=== PATIENT | male | born 1965 | race Caucasian/White ===

== ENCOUNTER 2017-02-27 21:37 | Observation (INO) | payer MEDICAID ==
[2017-02-27 21:37] VITALS: BMI 32.7
[2017-02-27 21:43] VITALS: TEMP 97.8
--- NOTE | 2017-02-27 23:14 | ED PDOC ---
HPI: Psych/Substance Abuse Time Seen by Provider: 02/27/17 22:02 Chief Complaint (Nursing): Alcohol Ingestion Chief Complaint (Provider): Alcohol Ingestion ED Caveat: Intoxicated History/Exam Limitations: intoxication Onset/Duration Of Symptoms: Unknown Modifying Factor(s): Alcohol Additional Complaint(s): Patient is a 51 yo male who is well known to this ED who presents intoxicated via [facility] found lying on the street. Patient unable to provide any complaints at this time due to intoxication. Past Medical History Reviewed: Historical Data, Nursing Documentation, Vital Signs Vital Signs: Last Vital Signs Temp 97.8 F 02/27/17 21:39 Pulse 86 02/27/17 21:39 Resp 18 02/27/17 21:39 BP 160/102 H 02/27/17 21:39 Pulse Ox 100 02/27/17 21:39 - Family History Family History: States: Unknown Family Hx - Immunization History Hx Tetanus Toxoid Vaccination: No Hx Influenza Vaccination: No Hx Pneumococcal Vaccination: No - Home Medications Home Medications: Ambulatory Orders Medication Instructions Recorded Amoxicillin/Clavulanate [Augmentin 1 tab PO BID #0 tab 03/09/16 875 MG-125 MG] Azithromycin [Zithromax] 250 mg PO DAILY #0 tab 03/09/16 Folic Acid 1 mg PO DAILY #0 tab 03/09/16 Furosemide [Lasix] 40 mg PO DAILY #0 tab 03/09/16 LORazepam [Ativan] 0.5 mg PO TID #0 tab 03/09/16 Spironolactone [Aldactone] 100 mg PO DAILY #0 tab 03/09/16 Thiamine [Vitamin B1 Tab] 100 mg PO DAILY #0 tab 03/09/16 Cephalexin [Keflex] 500 mg PO BID #14 capsule 07/10/16 - Allergies Allergies/Adverse Reactions: Allergies Allergy/AdvReac Type Severity Reaction Status Date / Time No Known Allergies Allergy Verified 04/19/16 14:37 Review of Systems ROS Statement: Except As Marked, All Systems Reviewed And Found Negative Constitutional: Negative for: Fever Respiratory: Negative for: Cough Gastrointestinal: Negative for: Vomiting Psych: Positive for: Other (Intoxicated) Physical Exam - Reviewed Vital Signs Reviewed: Yes - Physical Exam Appears: Negative for: No Acute Distress (Patient arousable to painful stimuli) Skin: Positive for: Warm Neck: Positive for: Normal Gastrointestinal/Abdominal: Positive for: Soft Extremity: Positive for: Other (small abrasion just distal to left olecranon) Neurologic/Psych: Positive for: Other (arousable to painful stimuli) - ECG O2 Sat by Pulse Oximetry: 100 Pulse Ox Interpretation: Normal Medical Decision Making Medical Decision Making: Time: 11:37 pm Impression: Alcohol intoxication Plan: POC Glucose Fingerstick Alcohol level Case endorsed to Dr. Jones pending reevaluation. Disposition - Clinical Impression Clinical Impression: Alcohol abuse with intoxication - Patient ED Disposition Is Patient to be Admitted: Transfer of Care - Disposition Disposition: Transfer of Care Disposition Time: 23:47 Condition: STABLE Forms: [facility] (Japanese)
--- NOTE | 2017-02-28 02:53 | ED PDOC ---
- ECG O2 Sat by Pulse Oximetry: 100 (RA) Pulse Ox Interpretation: Normal Medical Decision Making Medical Decision Making: Receiving sign out: Patient signed out to me by YESSY Dickson at 00:00 pending clinical sobriety. Scribe Attestation: Documented by Marixa Amor acting as a scribe for South Jones MD. Provider Attestation: All medical record entries made by the Scribe were at my direction and personally dictated by me. I have reviewed the chart and agree that the record accurately reflects my personal performance of the history, physical exam, medical decision making, and the department course for this patient. I have also personally directed, reviewed, and agree with the discharge instructions and disposition. Disposition - Clinical Impression Clinical Impression: Alcohol abuse with intoxication - POA Present On Arrival: None - Disposition Disposition: Routine/Home Disposition Time: 23:30 (02/27/17) Condition: STABLE ED OBSERVATION Date of observation admission: 02/28/17 Time of observation admission: 23:30 - Observation admission statement Patient is being placed in observation because:: Patient acutely intoxicated - Goals of Observation Goals of observation are:: Pending clinical sobriety - Progress Note Progress Note: 02/28/17 01:00 Patient resting in room, no acute distress. 02/28/17 02:33 Patient resting in room, no acute distress. 02/28/17 04:03 Resting in room, no acute distress. 02/28/17 05:20 resting in room, no acute distress. 02/28/17 05:50 Patient awake, alert and oriented with steady gait, stable for discharge home.
[2017-02-28 04:40] VITALS: BP 156/86; PULSE 78; RESP 16
[2017-02-28 05:20] VITALS: O2SAT 100
== END 2017-02-28 05:45 | disposition home or self-care (01) ==
LOC: H.ER 21:37 → H.EROBSV 23:24
PROVIDERS: ADMIT Emergency Medicine; ATTEND Emergency Medicine
DX: F10.129 Alcohol abuse with intoxication, unspecified (principal); Z79.899 Other long term (current) drug therapy; Y90.8 Blood alcohol level of 240 mg/100 ml or more
CPT/HCPCS: 36415; 80320; 82948; 99283; G0378

== ENCOUNTER 2017-05-22 01:28 | Emergency (ER) | payer MEDICAID ==
[2017-05-22 01:28] VITALS: BMI 32.7
--- NOTE | 2017-05-22 02:32 | ED PDOC ---
HPI: Psych/Substance Abuse Time Seen by Provider: 05/22/17 01:57 Chief Complaint (Nursing): Alcohol Ingestion Chief Complaint (Provider): Alcohol Ingestion ED Caveat: Intoxicated History Per: EMS History/Exam Limitations: intoxication Onset/Duration Of Symptoms: Mins (prior to arrival) Current Symptoms Are (Timing): Still Present Additional Complaint(s): 51 year old male, well-known to emergency department with previous medical history of alcoholism, who presents to the ED via EMS for an evaluation of public intoxication prior to arrival. Unable to obtain further medical history due to patient's current state of intoxication. PMD: none provided Past Medical History Reviewed: Nursing Documentation, Vital Signs, Unable To Obtain (intoxication) Vital Signs: Last Vital Signs Temp 98.0 F 05/22/17 01:48 Pulse 110 H 05/22/17 01:48 Resp 20 05/22/17 01:48 BP 166/105 H 05/22/17 01:48 Pulse Ox 100 05/22/17 01:48 - Family History Family History: States: Unknown Family Hx - Social History Alcohol: > 2 Drinks/Day - Immunization History Hx Tetanus Toxoid Vaccination: No Hx Influenza Vaccination: No Hx Pneumococcal Vaccination: No - Home Medications Home Medications: Ambulatory Orders Medication Instructions Recorded Amoxicillin/Clavulanate [Augmentin 1 tab PO BID #0 tab 03/09/16 875 MG-125 MG] Azithromycin [Zithromax] 250 mg PO DAILY #0 tab 03/09/16 Folic Acid 1 mg PO DAILY #0 tab 03/09/16 Furosemide [Lasix] 40 mg PO DAILY #0 tab 03/09/16 LORazepam [Ativan] 0.5 mg PO TID #0 tab 03/09/16 Spironolactone [Aldactone] 100 mg PO DAILY #0 tab 03/09/16 Thiamine [Vitamin B1 Tab] 100 mg PO DAILY #0 tab 03/09/16 Cephalexin [Keflex] 500 mg PO BID #14 capsule 07/10/16 - Allergies Allergies/Adverse Reactions: Allergies Allergy/AdvReac Type Severity Reaction Status Date / Time No Known Allergies Allergy Verified 05/22/17 01:48 Review of Systems Review Of Systems: ROS cannot be obtained secondary to pt's inabilty to answer questions. (intoxication) Physical Exam - Reviewed Nursing Documentation Reviewed: Yes Vital Signs Reviewed: Yes - Physical Exam Appears: Positive for: No Acute Distress Head Exam: Positive for: ATRAUMATIC, NORMAL INSPECTION, NORMOCEPHALIC Eye Exam: Positive for: Scleral icterus (chronic). Negative for: Normal appearance ENT: Positive for: Normal ENT Inspection Neck: Positive for: Normal Cardiovascular/Chest: Positive for: Regular Rate, Rhythm, Chest Non Tender Respiratory: Positive for: Normal Breath Sounds, Decreased Breath Sounds. Negative for: Respiratory Distress Gastrointestinal/Abdominal: Positive for: Soft, Distended (chronic). Negative for: Normal Exam Extremity: Positive for: Normal ROM, Pedal Edema (and chronic erythema) Neurologic/Psych: Positive for: Other (arousable to painful stimuli). Negative for: Alert, Oriented - Laboratory Results Result Diagrams: 05/22/17 03:24 05/22/17 03:24 - ECG O2 Sat by Pulse Oximetry: 100 (RA) Pulse Ox Interpretation: Normal Medical Decision Making Medical Decision Making: Initial Impression: Alcohol intoxication Initial Plan: * Clinical sobriety ____ Time: 0700 --Patient signed out to Dr. Pennington. Pending clinical sobriety. Scribe Attestation: Documented by Belle Martin, acting as a scribe for Prabhakar Sandoval MD. Provider Scribe Attestation: All medical record entries made by the Scribe were at my direction and personally dictated by me. I have reviewed the chart and agree that the record accurately reflects my personal performance of the history, physical exam, medical decision making, and the department course for this patient. I have also personally directed, reviewed, and agree with the discharge instructions and disposition. Disposition - Clinical Impression Clinical Impression: Alcohol abuse - Disposition Disposition Time: 07:00 Condition: STABLE Forms: [facility] (Slovak) Patient Signed Over To: Piter Hoover Handoff Comments: pending sobriety
[2017-05-22 03:33] LABS: BASO % 0.3 % (0.0-2.0); EOS # 0.2 K/uL (0.0-0.7); EOS % 3.9 % (0.0-4.0); HEMATOCRIT 35.1 % (35.0-51.0); LYMPH # 1.4 K/uL (1.0-4.3); LYMPH % 26.2 % (20.0-40.0); MEAN CELL VOLUME 90.9 fl (80.0-94.0); MEAN CORPUSCULAR HEMOGLOBIN 30.2 pg (27.0-31.0); MEAN CORPUSCULAR HGB CONC 33.2 g/dL (33.0-37.0); MEAN PLATELET VOLUME 7.7 fl (7.2-11.7); MONO # 0.4 K/uL (0.0-0.8); MONO % 6.9 % (0.0-10.0); NEUT # 3.4 K/uL (1.8-7.0); NEUT % 62.7 % (50.0-75.0); NRBC % 0.1 % (0.0-0.0); WHITE BLOOD COUNT 5.4 K/uL (4.8-10.8)
[2017-05-22 04:02] LABS: BLOOD UREA NITROGEN 8 mg/dl (9-20); CARBON DIOXIDE 25 mmol/L (22-30); CHLORIDE 107 mmol/L (98-107); GFR AFRICAN-AMERICAN > 60; GLUCOSE,RANDOM 121 mg/dL (75-110); POTASSIUM 3.6 MMOL/L (3.6-5.0); SODIUM 148 mmol/l (132-148)
[2017-05-22 04:03] LABS: CALCIUM 9.3 mg/dL (8.4-10.2)
[2017-05-22 04:09] LABS: ALCOHOL SERUM 328 mg/dl (0-10)
--- NOTE | 2017-05-22 07:06 | ED PDOC ---
- Laboratory Results Result Diagrams: 05/22/17 03:24 05/22/17 03:24 - ECG O2 Sat by Pulse Oximetry: 100 (RA) Pulse Ox Interpretation: Normal Medical Decision Making Medical Decision Makin:00 Patient signed over from Prabhakar Sandoval MD to me pending clinical sobriety. :32 Patient is now alert and oriented x3, tolerating PO intake, ambulatory with steady gait. Scribe Attestation: Documented by Pam Jarrell, acting as a scribe for Piter Hoover MD. Provider Scribe Attestation: All medical record entries made by the Scribe were at my direction and personally dictated by me. I have reviewed the chart and agree that the record accurately reflects my personal performance of the history, physical exam, medical decision making, and the department course for this patient. I have also personally directed, reviewed, and agree with the discharge instructions and disposition. Disposition - Clinical Impression Clinical Impression: Alcohol abuse - Disposition Disposition: Routine/Home Disposition Time: :32 Condition: STABLE Forms: [employer] (Maori)
[2017-05-22 07:28] VITALS: TEMP 97.7
[2017-05-22 11:46] VITALS: BP 132/78; PULSE 80; RESP 16
[2017-05-22 11:48] VITALS: O2SAT 100
== END 2017-05-22 11:59 | disposition home or self-care (01) ==
LOC: H.ER 01:28
DX: F10.129 Alcohol abuse with intoxication, unspecified (principal)

== ENCOUNTER 2017-08-20 20:32 | Emergency (ER) | payer MEDICAID ==
[2017-08-20 20:33] VITALS: BMI 32.7
[2017-08-20 20:42] VITALS: TEMP 97.6; O2SAT 97
--- NOTE | 2017-08-20 22:55 | ED PDOC ---
HPI: Psych/Substance Abuse Time Seen by Provider: 08/20/17 20:46 Chief Complaint (Nursing): Alcohol Ingestion Chief Complaint (Provider): Alcohol Ingestion ED Caveat: Intoxicated History Per: EMS History/Exam Limitations: intoxication Onset/Duration Of Symptoms: Days (x1) Current Symptoms Are (Timing): Still Present Additional Complaint(s): 51 y/o male brought to ED by EMS due to intoxication. Patient is well known to provider in ER. PMD: Provider TBD Past Medical History Reviewed: Historical Data, Nursing Documentation, Vital Signs, Unable To Obtain Vital Signs: Last Vital Signs Temp 97.6 F 08/20/17 20:37 Pulse 84 08/20/17 20:37 Resp 18 08/20/17 20:37 BP 111/66 08/20/17 20:37 Pulse Ox 97 08/20/17 20:37 - Family History Family History: States: Unknown Family Hx - Immunization History Hx Tetanus Toxoid Vaccination: No Hx Influenza Vaccination: No Hx Pneumococcal Vaccination: No - Home Medications Home Medications: Ambulatory Orders Medication Instructions Recorded Amoxicillin/Clavulanate [Augmentin 1 tab PO BID #0 tab 03/09/16 875 MG-125 MG] Azithromycin [Zithromax] 250 mg PO DAILY #0 tab 03/09/16 Folic Acid 1 mg PO DAILY #0 tab 03/09/16 Furosemide [Lasix] 40 mg PO DAILY #0 tab 03/09/16 LORazepam [Ativan] 0.5 mg PO TID #0 tab 03/09/16 Spironolactone [Aldactone] 100 mg PO DAILY #0 tab 03/09/16 Thiamine [Vitamin B1 Tab] 100 mg PO DAILY #0 tab 03/09/16 Cephalexin [Keflex] 500 mg PO BID #14 capsule 07/10/16 - Allergies Allergies/Adverse Reactions: Allergies Allergy/AdvReac Type Severity Reaction Status Date / Time No Known Allergies Allergy Verified 05/22/17 01:48 Review of Systems Review Of Systems: ROS cannot be obtained secondary to pt's inabilty to answer questions. Physical Exam - Reviewed Nursing Documentation Reviewed: Yes Vital Signs Reviewed: Yes - Physical Exam Appears: Positive for: Non-toxic, No Acute Distress (poor hygiene) Head Exam: Positive for: ATRAUMATIC, NORMAL INSPECTION, NORMOCEPHALIC Skin: Positive for: Normal Color, Warm, Dry. Negative for: Rash Eye Exam: Positive for: EOMI, Normal appearance, PERRL Neck: Positive for: Normal, Painless ROM, Supple Cardiovascular/Chest: Positive for: Regular Rate, Rhythm. Negative for: Murmur Respiratory: Positive for: Normal Breath Sounds. Negative for: Respiratory Distress Gastrointestinal/Abdominal: Positive for: Normal Exam, Bowel Sounds, Soft. Negative for: Tenderness Back: Positive for: Normal Inspection. Negative for: L CVA Tenderness, R CVA Tenderness, Vertebral Tenderness Extremity: Positive for: Normal ROM. Negative for: Pedal Edema, Deformity Neurologic/Psych: Positive for: Alert (somnolent but arousable ), Oriented. Negative for: Motor/Sensory Deficits - ECG O2 Sat by Pulse Oximetry: 97 (RA) Pulse Ox Interpretation: Normal Medical Decision Making Medical Decision Making: Time: 21:05 Initial Impression: 51 y/o male with alcohol intoxication Initial Plan: --Accucheck --Alcohol serum --Glucose, POC --Reevaluation 0530 Upon re-evaluation patient is awake, alert, and oriented x3. Patient walks with a steady gait and is stable for discharge home. Scribe Attestation: Documented by Jassi Anton and Sarah Vasquez, acting as a scribe for South Jones MD. Provider Scribe Attestation: All medical record entries made by the Scribe were at my direction and personally dictated by me. I have reviewed the chart and agree that the record accurately reflects my personal performance of the history, physical exam, medical decision making, and the department course for this patient. I have also personally directed, reviewed, and agree with the discharge instructions and disposition. Disposition - Clinical Impression Clinical Impression: Alcohol intoxication - Disposition Disposition: Routine/Home Disposition Time: 05:00 Condition: STABLE Instructions: Alcohol Use - When Is Drinking a Problem? Forms: [facility] (Welsh)
[2017-08-20 23:32] VITALS: BP 136/70; PULSE 100; RESP 20
== END 2017-08-21 06:00 | disposition home or self-care (01) ==
LOC: H.ER 20:32
DX: F10.129 Alcohol abuse with intoxication, unspecified (principal)

== ENCOUNTER 2017-12-07 18:56 | Emergency (ER) | payer SELFPAY ==
[2017-12-07 18:57] VITALS: BMI 32.7
[2017-12-07 19:10] VITALS: RESP 18
--- NOTE | 2017-12-07 21:06 | ED PDOC ---
HPI: Psych/Substance Abuse Time Seen by Provider: 12/07/17 19:17 Chief Complaint (Nursing): Alcohol Ingestion Chief Complaint (Provider): Alcohol Ingestion ED Caveat: Intoxicated History Per: EMS History/Exam Limitations: intoxication Onset/Duration Of Symptoms: Mins Current Symptoms Are (Timing): Still Present Suicide/Self Injury Attempted (Context): None Modifying Factor(s): Alcohol Additional Complaint(s): 51 y/o male brought in by EMS after being found sleeping on the street. Patient is unable to have a steady gait. Patient admits to drinking alcohol. Patient offers not other complaints at this time. Patient is well known to provider. PMD: None Provided Past Medical History Reviewed: Historical Data, Nursing Documentation, Vital Signs Vital Signs: Last Vital Signs Temp 98.7 F 12/07/17 19:08 Pulse 92 H 12/07/17 19:08 Resp 18 12/07/17 19:08 BP 117/72 12/07/17 19:08 Pulse Ox 100 12/07/17 19:08 - Medical History PMH: No Chronic Diseases - Family History Family History: States: Unknown Family Hx - Social History Alcohol: > 2 Drinks/Day - Immunization History Hx Tetanus Toxoid Vaccination: No Hx Influenza Vaccination: No Hx Pneumococcal Vaccination: No - Home Medications Home Medications: Ambulatory Orders Medication Instructions Recorded Amoxicillin/Clavulanate [Augmentin 1 tab PO BID #0 tab 03/09/16 875 MG-125 MG] Azithromycin [Zithromax] 250 mg PO DAILY #0 tab 03/09/16 Folic Acid 1 mg PO DAILY #0 tab 03/09/16 Furosemide [Lasix] 40 mg PO DAILY #0 tab 03/09/16 LORazepam [Ativan] 0.5 mg PO TID #0 tab 03/09/16 Spironolactone [Aldactone] 100 mg PO DAILY #0 tab 03/09/16 Thiamine [Vitamin B1 Tab] 100 mg PO DAILY #0 tab 03/09/16 Cephalexin [Keflex] 500 mg PO BID #14 capsule 07/10/16 - Allergies Allergies/Adverse Reactions: Allergies Allergy/AdvReac Type Severity Reaction Status Date / Time No Known Allergies Allergy Verified 12/07/17 19:08 Review of Systems Review Of Systems: ROS cannot be obtained secondary to pt's inabilty to answer questions. Physical Exam - Reviewed Nursing Documentation Reviewed: Yes Vital Signs Reviewed: Yes - Physical Exam Head Exam: Positive for: ATRAUMATIC Skin: Positive for: Normal Color, Warm, Dry Eye Exam: Positive for: Normal appearance, EOMI, PERRL ENT: Positive for: Normal ENT Inspection Neck: Positive for: Normal, Supple Cardiovascular/Chest: Positive for: Regular Rate, Rhythm. Negative for: Murmur Respiratory: Positive for: Normal Breath Sounds. Negative for: Respiratory Distress Gastrointestinal/Abdominal: Positive for: Normal Exam, Soft. Negative for: Tenderness Back: Positive for: Normal Inspection Extremity: Positive for: Normal ROM. Negative for: Pedal Edema, Deformity Neurologic/Psych: Positive for: Alert, Oriented. Negative for: Motor/Sensory Deficits - ECG O2 Sat by Pulse Oximetry: 100 (RA) Pulse Ox Interpretation: Normal - Progress ED Course And Treament: FSBS: 120 ETOH: 332 2200 Sleeping comfortably. No distress. Easily arousable. 2330 Still sleeping comfortably. Medical Decision Making Medical Decision Making: Time: 2029 Plan: -- Alcohol Serum -- Glucose, POC -- Finger Stick Scribe Attestation: Documented by Alessia Castro, acting as a scribe for David House PA-C. Provider Scribe Attestation: All medical record entries made by the Scribe were at my direction and personally dictated by me. I have reviewed the chart and agree that the record accurately reflects my personal performance of the history, physical exam, medical decision making, and the department course for this patient. I have also personally directed, reviewed, and agree with the discharge instructions and disposition. Disposition - Clinical Impression Clinical Impression: Alcohol intoxication - Patient ED Disposition Is Patient to be Admitted: Transfer of Care (Signed out to Nikolas HAMMOND pending sobriety) - Disposition Disposition Time: 00:00 Condition: STABLE Forms: [employer] [facility] (Mohawk)
[2017-12-08 00:20] VITALS: TEMP 97.9
--- NOTE | 2017-12-08 05:29 | ED PDOC ---
- ECG O2 Sat by Pulse Oximetry: 94 - Progress ED Course And Treament: Case endorsed to fiction writer from Harsh HAMMOND pending sobriety 00:30 Patient sleeping; no distress 2:00 Patient sleeping; no distress 3:30 Patient sleeping; no distress 5:00 Patient awake, alert, oriented x3. Ambulating steady gait Stable for discharge Disposition - Clinical Impression Clinical Impression: Alcohol intoxication - POA Present On Arrival: None - Disposition Disposition: Routine/Home Disposition Time: 05:29 Condition: STABLE Instructions: Alcohol Abuse and Alcoholism (DC) Print Language: FILIPINO
[2017-12-08 05:32] VITALS: BP 132/78; PULSE 86; O2SAT 95
== END 2017-12-08 05:35 | disposition home or self-care (01) ==
LOC: H.ER 18:56
DX: F10.129 Alcohol abuse with intoxication, unspecified (principal); Y90.8 Blood alcohol level of 240 mg/100 ml or more
CPT/HCPCS: 82948; 99284; G0480

== ENCOUNTER 2017-12-21 21:08 | Emergency (ER) | payer SELFPAY ==
[2017-12-21 21:08] VITALS: BMI 32.7
--- NOTE | 2017-12-21 21:44 | ED PDOC ---
HPI: Psych/Substance Abuse Time Seen by Provider: 12/21/17 21:13 Chief Complaint (Nursing): Alcohol Ingestion Chief Complaint (Provider): Alcohol Ingestion History Per: Patient History/Exam Limitations: no limitations Onset/Duration Of Symptoms: Days Current Symptoms Are (Timing): Still Present Modifying Factor(s): Alcohol Additional Complaint(s): 52 year old male presents to the ED via EMS for alcohol ingestion. EMS found patient sleeping on the sidewalk. He has no other complaints. PMD: No Family Provider Past Medical History Reviewed: Historical Data, Nursing Documentation, Vital Signs Vital Signs: Last Vital Signs Temp 97.5 F L 12/21/17 21:09 Pulse 91 H 12/21/17 21:09 Resp 20 12/21/17 21:09 BP 127/64 12/21/17 21:09 Pulse Ox 97 12/21/17 21:09 - Medical History PMH: No Chronic Diseases - Family History Family History: States: Unknown Family Hx - Immunization History Hx Tetanus Toxoid Vaccination: No Hx Influenza Vaccination: No Hx Pneumococcal Vaccination: No - Home Medications Home Medications: Ambulatory Orders Medication Instructions Recorded Amoxicillin/Clavulanate [Augmentin 1 tab PO BID #0 tab 03/09/16 875 MG-125 MG] Azithromycin [Zithromax] 250 mg PO DAILY #0 tab 03/09/16 Folic Acid 1 mg PO DAILY #0 tab 03/09/16 Furosemide [Lasix] 40 mg PO DAILY #0 tab 03/09/16 LORazepam [Ativan] 0.5 mg PO TID #0 tab 03/09/16 Spironolactone [Aldactone] 100 mg PO DAILY #0 tab 03/09/16 Thiamine [Vitamin B1 Tab] 100 mg PO DAILY #0 tab 03/09/16 Cephalexin [Keflex] 500 mg PO BID #14 capsule 07/10/16 - Allergies Allergies/Adverse Reactions: Allergies Allergy/AdvReac Type Severity Reaction Status Date / Time No Known Allergies Allergy Verified 12/07/17 19:08 Review of Systems ROS Statement: Except As Marked, All Systems Reviewed And Found Negative Psych: Negative for: Suicidal ideation (homicidal ideation) Physical Exam - Reviewed Nursing Documentation Reviewed: Yes Vital Signs Reviewed: Yes - Physical Exam Appears: Positive for: Non-toxic, No Acute Distress Head Exam: Positive for: ATRAUMATIC, NORMAL INSPECTION, NORMOCEPHALIC Skin: Positive for: Normal Color, Warm, DRY Eye Exam: Positive for: Normal appearance ENT: Positive for: Normal ENT Inspection Neck: Positive for: Normal Cardiovascular/Chest: Positive for: Regular Rate, Rhythm. Negative for: Murmur Respiratory: Positive for: Normal Breath Sounds. Negative for: Respiratory Distress Extremity: Positive for: Normal ROM. Negative for: Tenderness, Pedal Edema, Deformity Neurologic/Psych: Positive for: Alert, Oriented - ECG O2 Sat by Pulse Oximetry: 97 (RA) Pulse Ox Interpretation: Normal Medical Decision Making Medical Decision Making: Time: 2114 Initial Plan: --Accucheck [Glucose, Bood, POC] Endorsed pending sobriety. Scribe Attestation: Documented by Berlin Diego, acting as a scribe for Verónica Hayward PA-C. Provider Scribe Attestation: All medical record entries made by the Scribe were at my direction and personally dictated by me. I have reviewed the chart and agree that the record accurately reflects my personal performance of the history, physical exam, medical decision making, and the department course for this patient. I have also personally directed, reviewed, and agree with the discharge instructions and disposition. Disposition - Clinical Impression Clinical Impression: Alcohol abuse with intoxication - Patient ED Disposition Is Patient to be Admitted: Transfer of Care - Disposition Disposition: Transfer of Care Disposition Time: 23:38 Condition: STABLE Forms: [employer] (Mongolian)
[2017-12-21 23:44] VITALS: O2SAT 98
--- NOTE | 2017-12-22 05:32 | ED PDOC ---
- ECG O2 Sat by Pulse Oximetry: 98 - Progress ED Course And Treament: Case endorsed to typewriters functional tester from Yesy HAMMOND pending clinical sobriety 1:30 Patient sleeping; no distress 3:00 Patient sleeping; no distress 5:00 Patient awake, alert, oriented x3. Ambulating steady gait Stable for discharge Disposition - Clinical Impression Clinical Impression: Alcohol abuse with intoxication - POA Present On Arrival: None - Disposition Disposition: Routine/Home Disposition Time: 05:32 Condition: STABLE Instructions: Alcohol Abuse and Alcoholism (DC) Print Language: ENGLISH
[2017-12-22 06:16] VITALS: BP 137/86; PULSE 88; RESP 16; TEMP 98.2
== END 2017-12-22 05:40 | disposition home or self-care (01) ==
LOC: H.ER 21:08
DX: F10.129 Alcohol abuse with intoxication, unspecified (principal)